=== PATIENT | female | born 1955 | race Caucasian/White ===

== ENCOUNTER 2017-12-22 09:11 | Emergency (ER) | payer OTHER ==
[~2017-12-22] VITALS: Ht 165.1 cm; Wt 111.1 kg
[~2017-12-22 09:11] MED LIST: BENAZEPRIL HCL20 MG PO; DYMISTA NASAL S23 GM; ELMIRON100 MG PO; FLUOXETINE HCL20 MG PO; RANITIDINE HCL300 M1 PO; SERTRALINE HCL100 MG PO; TRAZODONE HCL50 MG PO; VERAPAMIL ER240 M1 PO
--- OUTSIDE RECORDS SUMMARY | 2017-12-22 09:14 | XMS REPORT | Clinical Summary ---
Author Author GILDA [facility] Address Unknown Phone Unavailable Care Team Providers Care Liaison Officer Name Role Phone PCP Unavailable Allergies Active Allergy Reactions Severity Noted Date Comments Sulfa (Sulfonamide Hives, Itching Medium 10/28/2017 Antibiotics) Current Medications Prescription Sig. Disp. Refills Start End Date Status Date FLUoxetine (PROZAC) 40 MG Take 40 mg by mouth Active capsuleIndications: major daily. depressive disorder pentosan polysulfate Take 100 mg by mouth 2 Active (ELMIRON) 100 mg (two) times daily. capsuleIndications: Interstitial Cystitis traZODone (DESYREL) 50 MG Take 50 mg by mouth 3 Active tabletIndications: (three) times daily. sleeping disorder verapamil (CALAN-SR) 240 Take 240 mg by mouth Active MG CR tabletIndications: daily. hypertension warfarin (COUMADIN) 5 MG Take 1 tablet (5 mg 90 tablet 0 10/31/20 Active tablet total) by mouth every 17 18 evening for 90 days. enoxaparin (LOVENOX) 120 Inject 0.7 mLs (110 mg 7 mL 0 10/31/20 Discontin mg/0.8 mL Syrg total) subcutaneously 17 17 ued every 12 (twelve) hours for 5 days. gabapentin (NEURONTIN) Take 1 capsule (100 mg 90 capsule 0 10/31/20 10/31/20 Discontin 100 MG capsule total) by mouth 3 (three) 17 17 ued times daily for 30 days. levoFLOXacin (LEVAQUIN) Take 1 tablet (500 mg 3 tablet 0 10/31/20 Discontin 500 MG tablet total) by mouth daily for 17 17 ued 3 days. warfarin (COUMADIN) 5 MG Take 1 tablet (5 mg 90 tablet 0 12/25/20 12 /25/20 Discontin tablet total) by mouth every 17 17 ued evening for 90 days. enoxaparin (LOVENOX) 120 Inject 0.7 mLs (110 mg 7 mL 0 10/31/20 mg/0.8 mL Syrg total) subcutaneously 17 17 every 12 (twelve) hours for 5 days. gabapentin (NEURONTIN) Take 1 capsule (100 mg 90 capsule 0 10/31/20 11/30/19 100 MG capsule total) by mouth 3 (three) 17 18 times daily for 30 days. levoFLOXacin (LEVAQUIN) Take 1 tablet (500 mg 3 tablet 0 10/31/20 500 MG tablet total) by mouth daily for 17 17 3 days. Active Problems Problem Noted Date Acute pulmonary embolus (HCC) 10/30/2017 Pneumonia 10/28/2017 Encounters Date Type Specialty Care Team Description 10/28/2017 [facility] General Internal Medicine Essence Mustafa - Encounter MD Arlyn 10/31/2017 Mahamed Ko MD after 12/21/2016 Social History Tobacco Use Types Packs/Day Years Used Date Never Smoker Smokeless Tobacco: Never Used Alcohol Use Drinks/Week oz/Week Comments No Sex Assigned at Date Recorded Not on file Last Filed Vital Signs Vital Sign Reading Time Taken Blood Pressure 145/77 10/31/2017 8:00 AM STAFF INTERPRETER Pulse 88 10/31/2017 8:48 AM STAFF INTERPRETER Temperature 35.7 C (96.3 F) 10/31/2017 8:00 AM STAFF INTERPRETER Respiratory Rate 18 10/31/2017 8:48 AM STAFF INTERPRETER Oxygen Saturation 93% 10/31/2017 8:48 AM STAFF INTERPRETER Inhaled Oxygen - - Concentration Weight 112 kg (247 lb) 10/28/2017 8:30 PM STAFF INTERPRETER Height 165.1 cm (5' 5") 10/28/2017 8:30 PM STAFF INTERPRETER Body Mass Index 41.1 10/28/2017 8:30 PM STAFF INTERPRETER Plan of Treatment Not on file Results * CBC with platelet count + automated diff (10/31/2017 6:04 AM) Only the most recent of 4 results within the time period is included. Component Value Ref Range WBC 4.0 3.5 - 10.5 K/ L RBC 4.20 3.93 - 5.22 M/ L Hemoglobin 12.3 11.2 - 15.7 GM/DL Hematocrit 38.8 34.1 - 44.9 % MCV 92.4 79.4 - 94.8 fL MCH 29.3 25.6 - 32.2 pg MCHC 31.7 (L) 32.2 - 35.5 GM/DL RDW 12.7 11.7 - 14.4 % Platelets 304 150 - 450 K/CU MM MPV 9.7 9.4 - 12.3 fL nRBC 0 0 - 0 /100 WBC % Neutros 57 % % Lymphs 29 % % Monos 9 % % Eos 4 % % Baso 1 % # Neutros 2.25 1.56 - 6.13 K/ L # Lymphs 1.16 (L) 1.18 - 3.74 K/ L # Monos 0.37 (H) 0.24 - 0.36 K/ L # Eos 0.15 0.04 - 0.36 K/ L # Baso 0.03 0.01 - 0.08 K/ L Immature 0 0 - 1 % Granulocytes-Relative Specimen Performing Laboratory Blood - Arm, [address] [address] * Daily Prothrombin time/INR while on warfarin (10/31/2017 6:04 AM) Only the most recent of 2 results within the time period is included. Component Value Ref Range Protime 15.8 (H) 11.7 - 14.7 seconds INR 1.3 <=5.9 Specimen Performing Laboratory Blood - [place], [address] [address] Narrative RECOMMENDED COUMADIN/WARFARIN INR THERAPY RANGES STANDARD DOSE: 2.0 - 3.0 Includes: PROPHYLAXIS for venous thrombosis, systemic embolization; TREATMENT for venous thrombosis and/or pulmonary embolus. HIGH RISK: Target INR is 2.5-3.5 for patients with mechanical heart valves. While on warfarin. * CBC with platelet count + automated diff (10/31/2017 6:04 AM) Only the most recent of 4 results within the time period is included. Specimen Performing Laboratory Blood Narrative The following orders were created for panel order CBC with platelet count + automated diff. Procedure Abnormality Status --------- - ------ CBC with platelet count ...[[id number]]AbnormalFinal result Please view results for these tests on the individual orders. * Phosphorus (10/31/2017 6:04 AM) Only the most recent of 4 results within the time period is included. Component Value Ref Range Phosphorus 3.3 2.3 - 4.7 mg/dL Specimen Performing Laboratory Blood - [place], [address] [address] * Magnesium (10/31/2017 6:04 AM) Only the most recent of 4 results within the time period is included. Component Value Ref Range Magnesium 2.0 1.6 - 2.6 mg/dL Specimen Performing Laboratory Blood - [place], [address] [address] * Basic metabolic panel (10/31/2017 6:04 AM) Only the most recent of 4 results within the time period is included. Component Value Ref Range Sodium 144 136 - 145 meq/L Potassium 4.4 3.5 - 5.1 meq/L Chloride 110 (H) 98 - 107 meq/L CO2 23 22 - 29 meq/L BUN 12 7 - 21 mg/dL Creatinine 0.87 0.57 - 1.25 mg/dL Glucose 100 70 - 105 mg/dL Calcium 9.6 8.4 - 10.2 mg/dL EGFR 66Comment: ESTIMATED GFR IS NOT ACCURATE mL/min/1.73 sq m CREATININE CLEARANCE IN PREDICTING GLOMERULAR FILTRATION RATE. ESTIMATED GFR IS NOT APPLICABLE FOR DIALYSIS PATIENTS. Specimen Performing Laboratory Blood - [place], [address] [address] * Prothrombin Gene Mutation (10/30/2017 5:55 PM) Component Value Ref Range Prothrombin/Factor II Negative for the [id number] (Prothrombin/Factor II) mutation. Pathologist: Kallie Blanco MD (electronic signature) Specimen Performing Laboratory Blood [address] [address] Narrative This test is a genotyping assay which evaluates the DNA sequence at position [address] of the prothrombin (Factor II) gene. A region of the prothrombin (Factor II) gene is amplified by polymerase chain reaction followed by fluorescent monitoring of a specific pair of hybridized probes. Since genetic variation and other factors can affect the accuracy of direct mutation testing, these results should be interpreted in light of clinical and familial data. This test was developed and its performance characteristics determined by the [facility] Pathology Department, Section of Molecular Pathology. It has not been cleared or approved by the U.S. Food and Drug Administration ( FDA), since FDA approval is not required for clinical use of the test. Validation was done as required by the Clinical Laboratory Improvement Amendments of 1988. * Phosphatidylserine Abs (IgG, IgM) (10/30/2017 5:55 PM) Component Value Ref Range Phos.Serine Ab IgG <10 U/mL Comment: <10 Negative 10-20 Equivocal- Found in small percentage of the healthy population; may be reactive >20 Positive - Risk factor for thrombosis and loss PHOSPHATIDYLSERINE AB <25 U/mL (IGM) Comment: Clinical Significance: The Antiphospholipid Antibody Syndrome (APS) is a clinical pathologic correlation that includes a clinical event (e.g. thrombosis, loss, thrombocytopenia) and persistent positive Antiphospholipid Antibodies (IgM or IgG RACHEL >40 MPL/GPL, IgM or IgG anti-B2GP1 antibodies, or a Lupus Anticoagulant). The IgA isotype has been implicated in smaller studies, but have not yet been incorporated into the APS criteria. International consensus guidelines suggest waiting at least 12 weeks before retesting to confirm antibody persistence. Reference J Thromb Haemost 2006: 4; 295. <25 Negative 25-35 Equivocal- Found in small percentage of the healthy population; may be reactive >35 Positive - Risk factor for thrombosis and loss For more information on this test, go to: http://education.Jalbum/faq/NSX964 Specimen Performing Laboratory Blood [facility] [employer] [address] Narrative Performing Lab [facility] [address] [address] Larry Live MD * Protein S activity (10/30/2017 5:55 PM) Component Value Ref Range Protein S Functional 74 60 - 140 % normal Comment: Decreased levels of Protein S activity may be found in patients with hereditary deficiency, warfarin therapy, vitamin k deficiency, liver disease, DIC, or recent thrombosis as well as after surgery. In addition, it may be physiologic in . An elevated Protein S activity is not clinically significant. Only deficiencies are associated with an increased thrombotic risk. Specimen Performing Laboratory Blood [facility] [address] [address] [place] [address] Narrative Performing Lab [facility] [address] [place] [address] Larry Live MD * Protein C activity (10/30/2017 5:55 PM) Component Value Ref Range Protein C Activity 134.0 (H) 70.0 - 130.0 % Specimen [place] [address] * Factor 5 Leiden PCR (thrombotic risk) (10/30/2017 5:55 PM) Component Value Ref Range Factor V Leiden Negative for the R506Q (Factor V Leiden) mutation Pathologist: Kallie Blanco MD (electronic signature) Specimen [place] [address] Narrative This test is a genotyping assay which evaluates the DNA sequence corresponding to Codon 506 of the Factor V Gene. A region of the Factor V Gene is amplified by polymerase chain reaction followed by fluorescent monitoring of a specific pair of hybridized probes. Since genetic variation and other factors can affect the accuracy of direct mutation testing, these results should be interpreted in light of clinical and familial data. This test was developed and its performance characteristics determined by the [facility] Pathology Department, Section of Molecular Pathology. It has not been cleared or approved by the U.S. Food and Drug Administration (FDA), since FDA approval is not required for clinical use of the test. Validation was done as required by the Clinical Laboratory Improvement Amendments of 1988. * Antithrombin III (10/30/2017 5:55 PM) Component Value Ref Range Antithrombin III 92.0 80.0 - 120.0 % Specimen [place] [address] * PERIPHERAL VASCULAR REPORT - SCAN (10/30/2017 3:50 PM) * ECHOCARDIOGRAM REPORT - SCAN (10/30/2017 3:20 PM) * Venous doppler legs bilateral (10/30/2017 1:30 PM) Component Value Ref Range Ejection Fraction Specimen Performing Laboratory [facility] CPACS Impressions Right Impression 1. There is no deep venous obstruction in the common femoral, profunda femoral, femoral, popliteal, posterior tibial or peroneal veins. 2. There is no superficial venous obstruction in the great saphenous vein. Left Impression 1. There is no deep venous obstruction in the common femoral, profunda femoral, femoral, popliteal, posterior tibial or peroneal veins. 2. There is no superficial venous obstruction in the great saphenous vein. Conclusions Summary Venous duplex imaging and compression of the bilateral lower extremities were performed. The veins were adequately visualized. The bilateral venous systems were patent and compressible with no evidence of thrombus. The venous Doppler waveforms were phasic with respiration. Signature Velocities are measured in cm/s ; Diameters are measured in cm Narrative PV LAB - Lower Extremities DVT Study Demographics Patient NameSAINTAMANT,Date of Study 10/30/2017 GAURAV VALLECILLO Age 62 Visit [id number] Gender Female Date of 1954 Number [facility] Number [id number] Physician Datawarehouse Developer Anya Graham InterpretingPhysician JOHNNA Lopez, RPVI Procedure Type of Study: Veins: Lower Extremities DVT Study, VENOUS DOPPLER LEG, BILATERAL. Indications for Study:Pulmonary embolus and Rule out DVT. Patient Status:STAT. Study Location:Portable. Technical Quality:Adequate visualization. Risk Factors History of Disease + +----+ + !Diagnosis!Date!Comments ! + +----+ + !History/Risk Factors:!!HTN, VIRGIE, RBBB, MIGRAINE ! + +----+ + Procedure Note Interface, External Ris In - 10/30/2017 3:09 PM STAFF INTERPRETER PV LAB - Lower Extremities DVT Study Demographics Patient Name LOUIE, Date of Study 10/30/2017 GAURAV VALLECILLO Age 62 Visit Number [id number] Gender Female Date of 1955 Number Referring Mahamed Ko Room Number [id number] Physician Datawarehouse Developer Anya Graham Interpreting Maye Otto, Physician , RPVI Procedure Type of Study: Veins: Lower Extremities DVT Study, VENOUS DOPPLER LEG, BILATERAL. Indications for Study:Pulmonary embolus and Rule out DVT. Patient Status:STAT. Study Location:Portable. Technical Quality:Adequate visualization. Risk Factors History of Disease + +----+ + !Diagnosis !Date!Comments ! + +----+ + !History/Risk Factors: ! !HTN, VIRGIE, RBBB, MIGRAINE ! + +----+ + Impressions Right Impression 1. There is no deep venous obstruction in the common femoral, profunda femoral, femoral, popliteal, posterior tibial or peroneal veins. 2. There is no superficial venous obstruction in the great saphenous vein. Left Impression 1. There is no deep venous obstruction in the common femoral, profunda femoral, femoral, popliteal, posterior tibial or peroneal veins. 2. There is no superficial venous obstruction in the great saphenous vein. Conclusions Summary Venous duplex imaging and compression of the bilateral lower extremities were performed. The veins were adequately visualized. The bilateral venous systems were patent and compressible with no evidence of thrombus. The venous Doppler waveforms were phasic with respiration. Signature Velocities are measured in cm/s ; Diameters are measured in cm * 2D Echo W/O Doppler(No Doppler) (10/30/2017 11:39 AM) Component Value Ref Range Ejection Fraction Specimen Performing Laboratory [facility] [place] [facility] Narrative Transthoracic Echocardiography Report (TTE) Demographics Patient NameSMichael JIMENEZ of Study10/30/2017 RUTH ANN Gender Female Visit [id number] Race Unknown Number [id number] Number Date of 1955 Referring Rocael Segura Physician Age 62 year(s) Datawarehouse Developer Toro Van [facility] Hot Header Operator Pretty Chavez Interpreting Physician GeraldMD Procedure Type of Study TTE procedure:ECHO2D MODE W/O DOPPLER (Routine) Indications:Shortness of breath. Clinical History Hypertension RBBB VIRGIE HGB 11.9 HCT 37 % Height: 65 inches Weight: 112.04 kg (247 lbs) BSA: 2.16 m^2 BMI: 41.1 kg/m^2 HR: 78 bpm BP: 133/63 mmHg Summary No evidence of LV hypertrophy. Normal (cardiac index 2-3 L/min/m2) cardiac output state at rest is noted. Grade 1 diastolic dysfunction (impaired relaxation and low-normal LA pressure). All of the LV segments contract normally . Global LV systolic function normal . Estimated LVEF by qualitative assessment is normal (>60%) . The left ventricle is chamber size (by PSLAX dimension) is normal (male - LVIDd 4.2-5.8cm) . The right ventricular chamber size and systolic function are within normal limits. Unable to estimate peak systolic PA pressure; inadequate TR velocity signal. No pericardial effusion is visualized. Previous Study No prior studies available for comparison. Signature Findings Rhythm/BPRegular sinus rhythm during the exam. Left Ventricle No evidence of LV hypertrophy. Normal (cardiac index 2-3 L/min/m2) cardiac output state at rest is noted. Grade 1 diastolic dysfunction (impaired relaxation and low-normal LA pressure). All of the LV segments contract normally . Global LV systolic function normal . Estimated LVEF by qualitative assessment is normal (>60%) . The left ventricle is chamber size (by PSLAX dimension ) is normal (male - LVIDd 4.2-5.8cm) . Left AtriumLA size is normal (16-34 ml/m2) . Right VentricleThe right ventricular chamber size and systolic function are within normal limits. Right Atrium RA cavity size is normal . Aortic Valve Normal AoV structure. Mitral Valve Normal MV structure. Tricuspid ValveTV structure is normal. Unable to estimate peak systolic PA pressure; inadequate TR velocity signal. Pulmonic Valve Normal PV structure and function. AortaAortic root size (Sinus of Valsalva diameter) is mildly dilated. 3.6 cm Proximal ascending aorta size is normal . PericardiumNo pericardial effusion is visualized. IVC/SVC/PA/PV/PleuralThe right upper pulmonary vein (RUPV) is normal . The inferior vena cava is not well visualized. The estimated RA pressure by IVC dynamics indeterminate . Chambers/Structures Left Atrium LA Volume: 38.6 ml LA Vol. Index: 18 ml/m^2 Left Ventricle LV Septum Diastolic: 0.98 cm LV PW Diastolic: 0.97 cm LVOT Diameter: 2 cm Right Ventricle TAPSE: 1.7 cm Aorta Ao Root S of [place].: 3.62 cm Ascending Aorta: 3.2 cm Doppler/Quantitative Measurements Mitral Valve MV Peak E-Wave: 0.85 m/sMV Peak A-Wave: 1.26 m/s E/ A Ratio: 0.67 Peak Gradient: 2.87 mmHg Deceleration Time: 306.4 msec MV Terry. Peak: Tissue Doppler E' Lateral Velocity: 0.1 m/sE/E': 8.51 LVOT Peak Velocity: 1.21 m/s Peak Gradient: 5.84 mmHg Mean Velocity: 0.81 m/s Mean Gradient: 3.04 mmHg LVOT Diameter: 2 cm LVOT VTI: 26.04 cm LVOT Area: 3.14 cm^2LVOT SV:81.77 ml LVOT CO: 6.38 l/min LVOT CI: 2.95 l/min/m^2 Procedure Note Interface, External Ris In - 10/30/2017 2:38 PM STAFF INTERPRETER Transthoracic Echocardiography Report (TTE) Demographics Patient Name GAURAV PALMA Date of Study 10/30/2017 RUTH ANN Gender Female Visit Number [id number] Race Unknown Room Number [id number] Number Date of 1955 Referring Rocael Segura Physician Age 62 year(s) Datawarehouse Developer Toro Araujo [facility] Hot Header Operator Pretty Chavez Interpreting Physician JOHNNA Duarte Procedure Type of Study TTE procedure:ECHO2D MODE W/O DOPPLER (Routine) Indications:Shortness of breath. Clinical History Hypertension RBBB VIRGIE HGB 11.9 HCT 37 % Height: 65 inches Weight: 112.04 kg (247 lbs) BSA: 2.16 m^2 BMI: 41.1 kg/m^2 HR: 78 bpm BP: 133/63 mmHg Summary No evidence of LV hypertrophy. Normal (cardiac index 2-3 L/min/m2) cardiac output state at rest is noted. Grade 1 diastolic dysfunction (impaired relaxation and low-normal LA pressure). All of the LV segments contract normally . Global LV systolic function normal . Estimated LVEF by qualitative assessment is normal (>60%) . The left ventricle is chamber size (by PSLAX dimension) is normal (male - LVIDd 4.2-5.8cm) . The right ventricular chamber size and systolic function are within normal limits. Unable to estimate peak systolic PA pressure; inadequate TR velocity signal. No pericardial effusion is visualized. Previous Study No prior studies available for comparison. Signature Findings Rhythm/BP Regular sinus rhythm during the exam. Left Ventricle No evidence of LV hypertrophy. Normal (cardiac index 2-3 L/min/m2) cardiac output state at rest is noted. Grade 1 diastolic dysfunction (impaired relaxation and low-normal LA pressure). All of the LV segments contract normally . Global LV systolic function normal . Estimated LVEF by qualitative assessment is normal (>60%) . The left ventricle is chamber size (by PSLAX dimension) is normal (male - LVIDd 4.2-5.8cm) . Left Atrium LA size is normal (16-34 ml/m2) . Right Ventricle The right ventricular chamber size and systolic function are within normal limits. Right Atrium RA cavity size is normal . Aortic Valve Normal AoV structure. Mitral Valve Normal MV structure. Tricuspid Valve TV structure is normal. Unable to estimate peak systolic PA pressure; inadequate TR velocity signal. Pulmonic Valve Normal PV structure and function. Aorta Aortic root size (Sinus of Valsalva diameter) is mildly dilated. 3.6 cm Proximal ascending aorta size is normal . Pericardium No pericardial effusion is visualized. IVC/SVC/PA/PV/Pleural The right upper pulmonary vein (RUPV) is normal . The inferior vena cava is not well visualized. The estimated RA pressure by IVC dynamics indeterminate . Chambers/Structures Left Atrium LA Volume: 38.6 ml LA Vol. Index: 18 ml/m^2 Left Ventricle LV Septum Diastolic: 0.98 cm LV PW Diastolic: 0.97 cm LVOT Diameter: 2 cm Right Ventricle TAPSE: 1.7 cm Aorta Ao Root S of [place].: 3.62 cm Ascending Aorta: 3.2 cm Doppler/Quantitative Measurements Mitral Valve MV Peak E-Wave: 0.85 m/s MV Peak A-Wave: 1.26 m/s E/A Ratio: 0.67 Peak Gradient: 2.87 mmHg Deceleration Time: 306.4 msec MV Terry. Peak: Tissue Doppler E' Lateral Velocity: 0.1 m/s E/E': 8.51 LVOT Peak Velocity: 1.21 m/s Peak Gradient: 5.84 mmHg Mean Velocity: 0.81 m/s Mean Gradient: 3.04 mmHg LVOT Diameter: 2 cm LVOT VTI: 26.04 cm LVOT Area: 3.14 cm^2 LVOT SV:81.77 ml LVOT CO: 6.38 l/min LVOT CI: 2.95 l/min/m^2 * CT chest for pulmonary embolus (10/29/2017 10:49 AM) Specimen Performing Laboratory [employer] Narrative FINAL REPORT HISTORY: Chest pain, acute, PE suspected, high pretest prob COMPARISON : None Technique : Multiple axial images of the chest were performed from the lung apices to the lung bases with 5 mm slice thickness with the administration of IV contrast. Images were further reconstructed with 2 mm slice thickness through the pulmonary arteries. This exam was performed according to our departmental dose optimization program which includes automated exposure control, adjustment of the mA and/or kV according to patient size and/or use of iterative reconstructive technique. Comment: Arising from the left thyroid gland, there is a nodule measuring 2.4 cm associated with some calcifications. Correlation with a thyroid ultrasound with possible biopsy is advised. There is atherosclerotic vascular disease. There is no hilar, mediastinal or axillary lymphadenopathy. The visualized portions of the spleen, adrenal glands, pancreas, and kidneys are within normal limits. There is hepatic steatosis. The osseous structures as well as the subcutaneous soft tissues are without any abnormalities. There are very small bilateral pleural effusions. Adjacent airspace disease more likely represents atelectasis. However, given the presence of pulmonary emboli, areas of infarct cannot be excluded. Pneumonitis or aspiration cannot be excluded. In the left upper lobe, there is an approximately 0.5 cm lung nodule. Additional patchy areas of airspace disease are also seen in the right middle lobe towards the periphery. The patient does have extensive bilateral pulmonary embolus. The findings were discussed with Dr. Ko. Impression: 1. Bilateral pulmonary embolus. 2. Trace bilateral pleural effusions. 3. Bibasilar and right middle lobe airspace disease. Given the presence of embolus, these could represent infarcts. Atelectasis, pneumonitis or aspiration are other considerations. 4. Emphysema/COPD. 5. Subcentimeter left upper lobe pulmonary nodule. Follow-up CT in 6 months is advised. 6. Left thyroid nodule. Please see above. Signed: Timbo Michaels MD Report Verified Date/Time:10/29/2017 11:04:32 Reading Location: [address] Reading Room Procedure Note Interface, External Ris In - 10/29/2017 11:06 AM STAFF INTERPRETER FINAL REPORT HISTORY: Chest pain, acute, PE suspected, high pretest prob COMPARISON : None Technique : Multiple axial images of the chest were performed from the lung apices to the lung bases with 5 mm slice thickness with the administration of IV contrast. Images were further reconstructed with 2 mm slice thickness through the pulmonary arteries. This exam was performed according to our departmental dose optimization program which includes automated exposure control, adjustment of the mA and/or kV according to patient size and/or use of iterative reconstructive technique. Comment: Arising from the left thyroid gland, there is a nodule measuring 2.4 cm associated with some calcifications. Correlation with a thyroid ultrasound with possible biopsy is advised. There is atherosclerotic vascular disease. There is no hilar, mediastinal or axillary lymphadenopathy. The visualized portions of the spleen, adrenal glands, pancreas, and kidneys are within normal limits. There is hepatic steatosis. The osseous structures as well as the subcutaneous soft tissues are without any abnormalities. There are very small bilateral pleural effusions. Adjacent airspace disease more likely represents atelectasis. However, given the presence of pulmonary emboli, areas of infarct cannot be excluded. Pneumonitis or aspiration cannot be excluded. In the left upper lobe, there is an approximately 0.5 cm lung nodule. Additional patchy areas of airspace disease are also seen in the right middle lobe towards the periphery. The patient does have extensive bilateral pulmonary embolus. The findings were discussed with Dr. Ko. Impression: 1. Bilateral pulmonary embolus. 2. Trace bilateral pleural effusions. 3. Bibasilar and right middle lobe airspace disease. Given the presence of embolus, these could represent infarcts. Atelectasis, pneumonitis or aspiration are other considerations. 4. Emphysema/COPD. 5. Subcentimeter left upper lobe pulmonary nodule. Follow-up CT in 6 months is advised. 6. Left thyroid nodule. Please see above. Signed: Timbo Michaels MD Report Verified Date/Time: 10/29/2017 11:04:32 Reading Location: [address] Transitional Reading Room * XR chest 1 view portable / bedside (10/29/2017 7:42 AM) Specimen Performing Laboratory [employer] Narrative FINAL REPORT Chest one view INDICATION: Shortness of breath COMPARISON: None available IMPRESSION: There are increased initial markings with airspace opacity in the left lung base. While edema and atelectasis are possible, pneumonitis cannot be excluded particularly in the left base. Short term radiographic follow up or CT can be obtained for re-evaluation. No pneumothorax or significant pleural effusion is evident. The cardiac silhouette is prominent. Mediastinal widening may be due to lipomatosis given body habitus. The bones appear intact. Signed: Ciltali Mitchell MD Report Verified Date/Time:10/29/2017 09:04:04 Reading Location: [address] Neuro Reading Room Procedure Note Interface, External Ris In - 10/29/2017 9:17 AM STAFF INTERPRETER FINAL REPORT Chest one view INDICATION: Shortness of breath COMPARISON: None available IMPRESSION: There are increased initial markings with airspace opacity in the left lung base. While edema and atelectasis are possible, pneumonitis cannot be excluded particularly in the left base. Short term radiographic follow up or CT can be obtained for re-evaluation. No pneumothorax or significant pleural effusion is evident. The cardiac silhouette is prominent. Mediastinal widening may be due to lipomatosis given body habitus. The bones appear intact. Signed: Citlali Mitchell MD Report Verified Date/Time: 10/29/2017 09:04:04 Reading Location: [address] Neuro Reading Room * Blood culture #2 (10/29/2017 6:22 AM) Only the most recent of 2 results within the time period is included. Component Value Ref Range Result No growth in 5 days Specimen Performing Laboratory Blood - Line, Venous [address] [address] * Manual Differential (10/29/2017 6:21 AM) Component Value Ref Range Total Counted Specimen Performing Laboratory Blood [address] [address] * Influenza A H1N1 PCR (10/29/2017 12:03 AM) Component Value Ref Range Influenza A RNA Not Detected Not Detected, Inconclusive Novel H1N1 RNA Not Detected Not Detected, Inconclusive Specimen Performing Laboratory Nasal - Nasal Mucosa [address] [address] Narrative These assays were performed by real-time RT-PCR (pollution control technician-PCR) utilizing fluorogenic hydrolysis probe technology for the detection of human Influenza A viruses and the differential detection of novel H1N1 Influenza virus in respiratory specimens. The test is composed of (1) an RNA extraction from patient specimen, and (2) pollution control technician-PCR amplification and detection with human Influenza A and novel [id number] primers and probes. A well-conserved region of the Influenza A matrix gene is targeted in one set of reactions to identify both seasonal Influenza A and novel H1N1 Influenza virus in the specimen.In addition, a specific region of the hemagglutinin gene is targeted to differentiate the novel H1N1 virus from the seasonal human influenza. An internal control is used to confirm PCR amplification.Genetic variation and other factors can affect the accuracy of nucleic acid testing; therefore, the results should be interpreted in light of clinical data. This test was developed and its performance characteristics determined by the [facility] Pathology Department, Section of Molecular Pathology.It has not been cleared or approved by the U.S. Food and Drug Administration (FDA).Since FDA approval is not required for clinical use of the test, validation was done as required by The Clinical Laboratory Amendments of 1988. These assays were performed by real-time RT-PCR (pollution control technician-PCR) utilizing fluorogenic hydrolysis probe technology for the detection of human Influenza A viruses and the differential detection of novel H1N1 Influenza virus in respiratory specimens. The test is composed of (1) an RNA extraction from patient specimen, and (2) pollution control technician-PCR amplification and detection with human Influenza A and novel [id number] primers and probes. A well-conserved region of the Influenza A matrix gene is targeted in one set of reactions to identify both seasonal Influenza A and novel H1N1 Influenza virus in the specimen.In addition, a specific region of the hemagglutinin gene is targeted to differentiate the novel H1N1 virus from the seasonal human influenza. An internal control is used to confirm PCR amplification.Genetic variation and other factors can affect the accuracy of nucleic acid testing; therefore, the results should be interpreted in light of clinical data. This test was developed and its performance characteristics determined by the [facility] Pathology Department, Section of Molecular Pathology.It has not been cleared or approved by the U.S. Food and Drug Administration (FDA).Since FDA approval is not required for clinical use of the test, validation was done as required by The Clinical Laboratory Amendments of 1988. * TSH/Free T4 If Indicated (10/28/2017 11:41 PM) Component Value Ref Range TSH 2.35 0.35 - 4.94 uIU/mL Specimen [place] [address] * Troponin I (10/28/2017 11:41 PM) Component Value Ref Range Troponin I <0.01 0.00 - 0.03 ng/mL Specimen [place] [address] Narrative Troponin I (TnI) levels must be interpreted in the context of the presenting symptoms and the clinical findings. Elevated TnI levels indicate myocardial damage, but are not specific for ischemic heart disease. Elevated TnI levels are seen in patients with other cardiac conditions (including myocarditis and congestive heart failure), and slight TnI elevations occur in patients with other conditions, including sepsis, renal failure, acidosis, acute neurological disease, and persistent tachyarrhythmia. * Lactic acid, venous, whole blood (10/28/2017 11:41 PM) Component Value Ref Range Lactate, Venous 1.9 0.5 - 2.2 mmol/L Specimen [place] [address] Narrative Effective 03/10/2016: Units/Reference Range Change New: 0.5-2.2 mmol/LPrevious: 5-20 mg/dL * D-dimer (10/28/2017 11:41 PM) Component Value Ref Range D-Dimer, Quant 2.59 (H) <0.50 MG/L FEU [place] [address] Narrative Intended Use: The D-Dimer Assay can be used to aid in the diagnosis of Deep Vein Thrombosis (DVT) and Pulmonary Embolism Disease (PED). In patients with low pre-test probability, various studies concerning STA Liatest D-dimer test have reported that with a cutoff value of 0.50 MG/L FEU, the Negative Predictive Value (NPV) regarding the exclusion of thrombosis is within 95-100% range. * T3 (10/28/2017 11:41 PM) Component Value Ref Range T3, Total 105 48 - 159 ng/dL Specimen Performing Laboratory Blood [place] [id number] * T4, free (10/28/2017 11:41 PM) Component Value Ref Range Free T4 1.06 0.70 - 1.48 ng/dL Specimen Performing Laboratory Blood [address] [address] * B-type Natriuretic Factor (BNP) (10/28/2017 11:41 PM) Component Value Ref Range BNP 26 0 - 100 pg/mL Specimen Performing Laboratory Blood [address] [address] * Creatine Kinase (CK), Total and MB (10/28/2017 11:41 PM) Component Value Ref Range Total CK 59 29 - 200 U/L CK-MB 0.9 0.0 - 6.6 ng/mL MB Relative Index 1.5 % Specimen Performing Laboratory Blood [address] [address] Narrative CK-MB Reference Range: <6.7Normal 6.7-10.0Borderline >10.0 Abnormal * Hepatic function panel (10/28/2017 11:41 PM) Component Value Ref Range Protein, Total 7.2 6.0 - 8.3 gm/dL Albumin 3.9 3.5 - 5.0 g/dL Total Bilirubin 0.4 0.2 - 1.2 mg/dL Bilirubin, Direct 0.2 0.1 - 0.5 mg/dL Alkaline Phosphatase 100 40 - 150 U/L AST 27 5 - 34 U/L ALT 43 6 - 55 U/L Specimen Performing Laboratory Blood [address] [address] after 12/21/2016
--- OUTSIDE RECORDS SUMMARY | 2017-12-22 09:15 | XMS REPORT ---
Author Author [facility] Address Unknown Phone Unavailable Care Team Providers Care Rn Cvor Name Role Phone CARLOS THOMPSON Unavailable Unavailable Problems This patient has no known problems. Allergies, Adverse Reactions, Alerts This patient has no known allergies or adverse reactions. Medications This patient has no known medications. Results Test Description Test Time Test Comments Text Results Atomic Results Result Comments BLOOD CULTURE 2017-11-03 10:00:00 CULTURE (BEAKER) (test adzm=4476) No growth in 5 days BLOOD [id number] 05:00:00* Test Item Value Reference Range Comments CULTURE (BEAKER) (test socp=3966) No growth in 5 days PROTHROMBIN GENE [id number] 09:01:00* Test Item Value Reference Range Comments PROTHROMBIN/FACTOR II (BEAKER) (test fyhy=7059) Negative for the [id number] ( Prothrombin/Factor II) mutation. [id number]-0149(BEAKER) (test gprx=9942) Kallie Blanco MD ( electronic signature) This test is a genotyping assay which evaluates the DNA sequence at position 44513 of the prothrombin (Factor II) gene. A region of the prothrombin (Factor II) gene is amplified by polymerase chain reaction followed by fluorescent monitoring of a specific pair of hybridized probes. Since genetic variation and other factors can affect the accuracy of direct mutation testing, these results should be interpreted in light of clinical and familial data.This test was developed and its performance characteristics determined by the [facility] Pathology Department, Section of Molecular Pathology. It has not been cleared or approved by the U.S. Food and Drug Administration (FDA), since FDA approval is not required for clinical use of the test. Validation was done as required by the Clinical Laboratory Improvement Amendments of 1988.FACTOR 5 LEIDEN PCR (THROMBOTIC RISK)2017-11-02 08:59:00* Test Item Value Reference Range Comments FACTOR V LEIDEN (BEAKER) (test dsaw=778) Negative for the R506Q (Factor V Leiden) mutation [id number] (BEAKER) (test ejql=1485) Kallie Blanco MD ( electronic signature) This test is a genotyping assay which [...] interpreted in light of clinical and familial data.This test was developed and its performance characteristics determined by the [facility] Pathology Department, Section of Molecular Pathology. It has not been cleared or approved by the U.S. Food and Drug Administration (FDA), since FDA approval is not required for clinical use of the test. Validation was done as required by the Clinical Laboratory Improvement Amendments of 1988.ANTITHROMBIN [id number] 09 :50:00* Test Item Value Reference Range Comments ANTITHROMBIN III ACTIVITY (BEAKER) (test cvmt=199) 92.0 % 80.0-120.0 PROTEIN C [id number] 09:41:00* Test Item Value Reference Range Comments PROTEIN C ACTIVITY (BEAKER) (test bqop=335) 134.0 % 70.0-130.0 [id number] 07:15:00* Test Item Value Reference Range Comments PHOSPHORUS (BEAKER) (test esuz=874) 3.3 mg/dL 2.3-4.7 [id number] 07:15:00* Test Item Value Reference Range Comments MAGNESIUM (BEAKER) (test wuen=609) 2.0 mg/dL 1.6-2.6 BASIC METABOLIC [id number] 07:15:00* Test Item Value Reference Range Comments SODIUM (BEAKER) (test txfj=352) 144 meq/L 136-145 POTASSIUM (BEAKER) (test jyul=455) 4.4 meq/L 3.5-5.1 CHLORIDE (BEAKER) (test yqtb=647) 110 meq/L 98-107 CO2 (BEAKER) (test pwgb=441) 23 meq/L 22-29 BLOOD UREA NITROGEN (BEAKER) (test nksx=222) 12 mg/dL 7-21 CREATININE (BEAKER) (test ewxp=219) 0.87 mg/dL 0.57-1.25 GLUCOSE RANDOM (BEAKER) (test itqo=421) 100 mg/dL 70-105 CALCIUM (BEAKER) (test zmxd=487) 9.6 mg/dL 8.4-10.2 EGFR (BEAKER) (test ewzp=3633) 66 mL/min/1.73 sq m ESTIMATED GFR IS NOT ACCURATE CREATININE CLEARANCE IN PREDICTING GLOMERULAR FILTRATION RATE. ESTIMATED GFR IS NOT APPLICABLE FOR DIALYSIS PATIENTS. PROTHROMBIN TIME/[id number] 06:48:00* Test Item Value Reference Range Comments PROTIME (BEAKER) (test uhyl=353) 15.8 seconds 11.7-14.7 INR (BEAKER) (test ahxu=285) 1.3 <=5.9 RECOMMENDED COUMADIN/WARFARIN INR THERAPY RANGESSTANDARD DOSE: 2.0 - 3.0 Includes: PROPHYLAXIS for venous thrombosis, systemic embolization; TREATMENT for venous thrombosis and/or pulmonary embolus.HIGH RISK: Target INR is 2.5-3.5 for patients with mechanical heart valves.While on warfarin.CBC W/PLT COUNT & AUTO [id number] 06:43:00* Test Item Value Reference Range Comments WHITE BLOOD CELL COUNT (BEAKER) (test nsfu=822) 4.0 K/ L 3.5-10.5 RED BLOOD CELL COUNT (BEAKER) (test ppdj=989) 4.20 M/ L 3.93-5.22 HEMOGLOBIN (BEAKER) (test kcln=773) 12.3 GM/DL 11.2-15.7 HEMATOCRIT (BEAKER) (test yhtb=736) 38.8 % 34.1-44.9 MEAN CORPUSCULAR VOLUME (BEAKER) (test srzo=779) 92.4 fL 79.4-94.8 MEAN CORPUSCULAR HEMOGLOBIN (BEAKER) (test hlkm=333) 29.3 pg 25.6-32.2 MEAN CORPUSCULAR HEMOGLOBIN CONC (BEAKER) (test unad=738) 31.7 GM/DL 32.2- 35.5 RED CELL DISTRIBUTION WIDTH (BEAKER) (test rzod=942) 12.7 % 11.7-14.4 PLATELET COUNT (BEAKER) (test tbxn=068) 304 K/CU MM 150-450 MEAN PLATELET VOLUME (BEAKER) (test mzkm=875) 9.7 fL 9.4-12.3 NUCLEATED RED BLOOD CELLS (BEAKER) (test zsqp=407) 0 /100 WBC 0-0 NEUTROPHILS RELATIVE PERCENT (BEAKER) (test bira=574) 57 % LYMPHOCYTES RELATIVE PERCENT (BEAKER) (test nzoc=415) 29 % MONOCYTES RELATIVE PERCENT (BEAKER) (test eybx=776) 9 % EOSINOPHILS RELATIVE PERCENT (BEAKER) (test qqgh=295) 4 % BASOPHILS RELATIVE PERCENT (BEAKER) (test kkfe=340) 1 % NEUTROPHILS ABSOLUTE COUNT (BEAKER) (test edle=166) 2.25 K/ L 1.56-6.13 LYMPHOCYTES ABSOLUTE COUNT (BEAKER) (test osiz=853) 1.16 K/ L 1.18-3.74 MONOCYTES ABSOLUTE COUNT (BEAKER) (test ltqa=300) 0.37 K/ L 0.24-0.36 EOSINOPHILS ABSOLUTE COUNT (BEAKER) (test aupu=193) 0.15 K/ L 0.04-0.36 BASOPHILS ABSOLUTE COUNT (BEAKER) (test svzk=129) 0.03 K/ L 0.01-0.08 IMMATURE GRANULOCYTES-RELATIVE PERCENT (BEAKER) (test qelt=0063) 0 % 0-1 CBC W/PLT COUNT & AUTO [id number] 07:50:00* Test Item Value Reference Range Comments WHITE BLOOD CELL COUNT (BEAKER) (test accf=055) 3.8 K/ L 3.5-10.5 RED BLOOD CELL COUNT (BEAKER) (test toby=448) 4.05 M/ L 3.93-5.22 HEMOGLOBIN (BEAKER) (test kqke=490) 11.9 GM/DL 11.2-15.7 HEMATOCRIT (BEAKER) (test emyo=203) 37.0 % 34.1-44.9 MEAN CORPUSCULAR VOLUME (BEAKER) (test dvhj=909) 91.4 fL 79.4-94.8 MEAN CORPUSCULAR HEMOGLOBIN (BEAKER) (test lnlh=098) 29.4 pg 25.6-32.2 MEAN CORPUSCULAR HEMOGLOBIN CONC (BEAKER) (test mrhh=710) 32.2 GM/DL 32.2- 35.5 RED CELL DISTRIBUTION WIDTH (BEAKER) (test fwvg=986) 12.5 % 11.7-14.4 PLATELET COUNT (BEAKER) (test urnr=005) 286 K/CU MM 150-450 MEAN PLATELET VOLUME (BEAKER) (test kvtd=702) 9.8 fL 9.4-12.3 NUCLEATED RED BLOOD CELLS (BEAKER) (test zaml=932) 0 /100 WBC 0-0 NEUTROPHILS RELATIVE PERCENT (BEAKER) (test tvej=270) 53 % LYMPHOCYTES RELATIVE PERCENT (BEAKER) (test unnf=315) 33 % MONOCYTES RELATIVE PERCENT (BEAKER) (test tfht=082) 10 % EOSINOPHILS RELATIVE PERCENT (BEAKER) (test hyfk=849) 3 % BASOPHILS RELATIVE PERCENT (BEAKER) (test uizt=433) 1 % NEUTROPHILS ABSOLUTE COUNT (BEAKER) (test ksud=146) 2.02 K/ L 1.56-6.13 LYMPHOCYTES ABSOLUTE COUNT (BEAKER) (test wimv=475) 1.26 K/ L 1.18-3.74 MONOCYTES ABSOLUTE COUNT (BEAKER) (test bxce=833) 0.39 K/ L 0.24-0.36 EOSINOPHILS ABSOLUTE COUNT (BEAKER) (test qcwp=456) 0.13 K/ L 0.04-0.36 BASOPHILS ABSOLUTE COUNT (BEAKER) (test ajdm=315) 0.02 K/ L 0.01-0.08 IMMATURE GRANULOCYTES-RELATIVE PERCENT (BEAKER) (test uouy=6204) 0 % 0-1 [id number] 07:40:00* Test Item Value Reference Range Comments MAGNESIUM (BEAKER) (test gksi=181) 2.0 mg/dL 1.6-2.6 [id number] 07:40:00* Test Item Value Reference Range Comments PHOSPHORUS (BEAKER) (test uvvl=372) 3.4 mg/dL 2.3-4.7 BASIC METABOLIC [id number] 07:40:00* Test Item Value Reference Range Comments SODIUM (BEAKER) (test pwwv=263) 143 meq/L 136-145 POTASSIUM (BEAKER) (test qyxe=340) 4.2 meq/L 3.5-5.1 CHLORIDE (BEAKER) (test mkhe=137) 111 meq/L 98-107 CO2 (BEAKER) (test vbtu=284) 24 meq/L 22-29 BLOOD UREA NITROGEN (BEAKER) (test eyvb=823) 16 mg/dL 7-21 CREATININE (BEAKER) (test rxss=937) 0.88 mg/dL 0.57-1.25 GLUCOSE RANDOM (BEAKER) (test qlhq=095) 102 mg/dL 70-105 CALCIUM (BEAKER) (test rrft=709) 9.3 mg/dL 8.4-10.2 EGFR (BEAKER) (test cwqf=7080) 65 mL/min/1.73 sq m ESTIMATED GFR IS NOT ACCURATE CREATININE CLEARANCE IN PREDICTING GLOMERULAR FILTRATION RATE. ESTIMATED GFR IS NOT APPLICABLE FOR DIALYSIS PATIENTS. INFLUENZA A H1N1 [id number] 23:10:00* Test Item Value Reference Range Comments INFLUENZA A RNA (BEAKER) (test gyis=7612) Not Detected Not Detected, Inconclusive NOVEL H1N1 RNA (BEAKER) (test fqsg=5444) Not Detected Not Detected, Inconclusive These assays were performed by real-time RT-PCR (cattle feeder-PCR) utilizing fluorogenic hydrolysis probe technology for the detection of human Influenza A viruses and the differential detection of novel H1N1 Influenza virus in respiratory specimens. The test is composed of (1) an RNA extraction from patient specimen, and (2) cattle feeder-PCR amplification and detection with human Influenza A and novel C8O4-khiktuje primers and probes. A well-conserved region of the Influenza A matrix gene is targeted in one set of reactions to identify both seasonal Influenza A and novel H1N1 Influenza virus in the specimen. In addition, a specific region of the hemagglutinin gene is targeted to differentiate the novel H1N1 virus from the seasonal human influenza. An internal control is used to confirm PCR amplification. Genetic variation and other factors can affect the accuracy of nucleic acid testing; therefore, the results should be interpreted in light of clinical data. This test was developed and its performance characteristics determined by the [facility] Pathology Department, Section of Molecular Pathology. It has not been cleared or approved by the U.S. Food and Drug Administration (FDA). Since FDA approval is not required for clinical use of the test, validation was done as required by The Clinical Laboratory Amendments of 1988.These assays were performed by real-time RT-PCR (cattle feeder-PCR) utilizing fluorogenic hydrolysis probe technology for the detection of human Influenza A viruses and the differential detection of novel H1N1 Influenza virus in respiratory specimens. The test is composed of (1) an RNA extraction from patient specimen, and (2) cattle feeder-PCR amplification and detection with human Influenza A and novel M8Q4-snnkzohs primers and probes. A well-conserved region of the Influenza A matrix gene is targeted in one set of reactions to identify both seasonal Influenza A and novel H1N1 Influenza virus in the specimen. In addition, a specific region of the hemagglutinin gene is targeted to differentiate the novel H1N1 virus from the seasonal human influenza. An internal control is used to confirm PCR amplification. Genetic variation and other factors can affect the accuracy of nucleic acid testing; therefore, the results should be interpreted in light of clinical data. This test was developed and its performance characteristics determined by the [facility] Pathology Department, Section of Molecular Pathology. It has not been cleared or approved by the U.S. Food and Drug Administration ( FDA). Since FDA approval is not required for clinical use of the test, validation was done as required by The Clinical Laboratory Amendments of 1988.CT , CHEST WITH IV CONTRAST- PE TEST [id number] 11:04:00FINAL REPORT HISTORY: Chest pain, acute, PE suspected, [...] Adjacent airspace disease more likely represents atelectasis. However , given the presence of pulmonary emboli, areas [...] pneumonitis or aspiration are other considerations. 4. Emphysema/ COPD. 5. Subcentimeter left upper lobe pulmonary nodule. Follow-up CT in 6 months is advised. 6. Left thyroid nodule. Please see above. Signed: Timbo Michaels MDReport Verified Date/Time: 10/29/2017 11:04:32 Reading Location: [address] Transitional Reading Room W/PLT COUNT & AUTO [id number] 09:53: 00* Test Item Value Reference Range Comments WHITE BLOOD CELL COUNT (BEAKER) (test cqlp=465) 4.2 K/ L 3.5-10.5 RED BLOOD CELL COUNT (BEAKER) (test yern=439) 3.87 M/ L 3.93-5.22 HEMOGLOBIN (BEAKER) (test fadr=392) 11.6 GM/DL 11.2-15.7 HEMATOCRIT (BEAKER) (test kcfx=430) 36.2 % 34.1-44.9 MEAN CORPUSCULAR VOLUME (BEAKER) (test ldrf=041) 93.5 fL 79.4-94.8 MEAN CORPUSCULAR HEMOGLOBIN (BEAKER) (test dspj=540) 30.0 pg 25.6-32.2 MEAN CORPUSCULAR HEMOGLOBIN CONC (BEAKER) (test qepr=249) 32.0 GM/DL 32.2- 35.5 RED CELL DISTRIBUTION WIDTH (BEAKER) (test flgw=050) 12.5 % 11.7-14.4 PLATELET COUNT (BEAKER) (test dgmt=844) 280 K/CU MM 150-450 MEAN PLATELET VOLUME (BEAKER) (test imqt=859) 9.9 fL 9.4-12.3 NUCLEATED RED BLOOD CELLS (BEAKER) (test kmab=885) 0 /100 WBC 0-0 NEUTROPHILS RELATIVE PERCENT (BEAKER) (test bpvq=560) 43 % LYMPHOCYTES RELATIVE PERCENT (BEAKER) (test mvrq=236) 44 % MONOCYTES RELATIVE PERCENT (BEAKER) (test xhvc=320) 10 % EOSINOPHILS RELATIVE PERCENT (BEAKER) (test fiya=700) 3 % BASOPHILS RELATIVE PERCENT (BEAKER) (test favo=522) 1 % NEUTROPHILS ABSOLUTE COUNT (BEAKER) (test iiwt=055) 1.79 K/ L 1.56-6.13 LYMPHOCYTES ABSOLUTE COUNT (BEAKER) (test oyhl=844) 1.82 K/ L 1.18-3.74 MONOCYTES ABSOLUTE COUNT (BEAKER) (test ckqc=387) 0.41 K/ L 0.24-0.36 EOSINOPHILS ABSOLUTE COUNT (BEAKER) (test jzxj=478) 0.13 K/ L 0.04-0.36 BASOPHILS ABSOLUTE COUNT (BEAKER) (test sfjq=497) 0.02 K/ L 0.01-0.08 IMMATURE GRANULOCYTES-RELATIVE PERCENT (BEAKER) (test khcy=1404) 0 % 0-1 (MANUAL DIFFERENTIAL)2017-10-29 09:53:00* Test Item Value Reference Range Comments TOTAL COUNTED (BEAKER) (test wzwh=3869) RAD, CHEST, 1 VIEW, NON [id number] 09:04:00Reason for exam:->shortness of breathShould this be performed at the bedside?->YesFINAL REPORT Chest one view INDICATION: Shortness of [...] The bones appear intact. Signed: Citlali Mitchell Verified Date/ Time: 10/29/2017 09:04:04 Reading Location: [facility] C013V Neuro Reading Room [id number] 08:16:00* Test Item Value Reference Range Comments PHOSPHORUS (BEAKER) (test cuer=856) 3.8 mg/dL 2.3-4.7 [id number] 08:16:00* Test Item Value Reference Range Comments MAGNESIUM (BEAKER) (test meqd=834) 1.9 mg/dL 1.6-2.6 BASIC METABOLIC [id number] 08:16:00* Test Item Value Reference Range Comments SODIUM (BEAKER) (test fcuw=076) 143 meq/L 136-145 POTASSIUM (BEAKER) (test ahnx=729) 3.8 meq/L 3.5-5.1 CHLORIDE (BEAKER) (test syem=518) 111 meq/L 98-107 CO2 (BEAKER) (test qvyv=502) 22 meq/L 22-29 BLOOD UREA NITROGEN (BEAKER) (test zaom=996) 13 mg/dL 7-21 CREATININE (BEAKER) (test zvnr=111) 0.81 mg/dL 0.57-1.25 GLUCOSE RANDOM (BEAKER) (test hpdu=289) 90 mg/dL 70-105 CALCIUM (BEAKER) (test vwwd=525) 9.2 mg/dL 8.4-10.2 EGFR (BEAKER) (test btsk=8896) 72 mL/min/1.73 sq m ESTIMATED GFR IS NOT ACCURATE CREATININE CLEARANCE IN PREDICTING GLOMERULAR FILTRATION RATE. ESTIMATED GFR IS NOT APPLICABLE FOR DIALYSIS PATIENTS. T4, [id number] 03:54:00* Test Item Value Reference Range Comments FREE T4 (BEAKER) (test ibrc=601) 1.06 ng/dL 0.70-1.48 [id number] 02:23:00* Test Item Value Reference Range Comments T3 TOTAL (BEAKER) (test jymq=297) 105 ng/dL 48-159 TSH/FREE T4 IF [id number] 02:23:00* Test Item Value Reference Range Comments THYROID STIMULATING HORMONE (BEAKER) (test icwz=429) 2.35 uIU/mL 0.35-4.94 B-TYPE NATRIURETIC FACTOR (BNP)2017-10-29 00:24:00* Test Item Value Reference Range Comments B-TYPE NATRIURETIC PEPTIDE (BEAKER) (test ylyt=596) 26 pg/mL 0-100 CREATINE KINASE (CK), TOTAL AND [id number] 00:23:00* Test Item Value Reference Range Comments CREATINE KINASE TOTAL (BEAKER) (test omja=639) 59 U/L 29-200 CREATINE KINASE-MB (BEAKER) (test iuor=350) 0.9 ng/mL 0.0-6.6 CREATINE KINASE-MB INDEX (BEAKER) (test qwwl=043) 1.5 % CK-MB Reference Range:<6.7 Normal6.7-10.0 Borderline>10.0 AbnormalTROPONIN [id number] 00:23:00* Test Item Value Reference Range Comments TROPONIN I (BEAKER) (test hpen=135) < ng/mL 0.00-0.03 Troponin I (TnI) levels must be interpreted [...] failure, acidosis, acute neurological disease, and persistent tachyarrhythmia.[id number] 00:17:00* Test Item Value Reference Range Comments PHOSPHORUS (BEAKER) (test gmab=403) 2.9 mg/dL 2.3-4.7 [id number] 00:17:00* Test Item Value Reference Range Comments MAGNESIUM (BEAKER) (test nseo=381) 1.9 mg/dL 1.6-2.6 BASIC METABOLIC [id number] 00:17:00* Test Item Value Reference Range Comments SODIUM (BEAKER) (test uhwu=912) 140 meq/L 136-145 POTASSIUM (BEAKER) (test ticw=941) 3.6 meq/L 3.5-5.1 CHLORIDE (BEAKER) (test zduo=691) 106 meq/L 98-107 CO2 (BEAKER) (test gmvi=060) 23 meq/L 22-29 BLOOD UREA NITROGEN (BEAKER) (test dryr=000) 14 mg/dL 7-21 CREATININE (BEAKER) (test ycky=513) 0.84 mg/dL 0.57-1.25 GLUCOSE RANDOM (BEAKER) (test dtvk=301) 121 mg/dL 70-105 CALCIUM (BEAKER) (test nmrn=928) 9.7 mg/dL 8.4-10.2 EGFR (BEAKER) (test lbdq=3403) 69 mL/min/1.73 sq m ESTIMATED GFR IS NOT ACCURATE CREATININE CLEARANCE IN PREDICTING GLOMERULAR FILTRATION RATE. ESTIMATED GFR IS NOT APPLICABLE FOR DIALYSIS PATIENTS. HEPATIC FUNCTION [id number] 00:17:00* Test Item Value Reference Range Comments TOTAL PROTEIN (BEAKER) (test lltl=400) 7.2 gm/dL 6.0-8.3 ALBUMIN (BEAKER) (test ffjt=3729) 3.9 g/dL 3.5-5.0 BILIRUBIN TOTAL (BEAKER) (test hdct=405) 0.4 mg/dL 0.2-1.2 BILIRUBIN DIRECT (BEAKER) (test kkkb=938) 0.2 mg/dL 0.1-0.5 ALKALINE PHOSPHATASE (BEAKER) (test dxnn=680) 100 U/L 40-150 AST (SGOT) (BEAKER) (test qnxq=863) 27 U/L 5-34 ALT (SGPT) (BEAKER) (test pwaw=889) 43 U/L 6-55 [id number] 00:10:00* Test Item Value Reference Range Comments D-DIMER QUANTITATIVE (BEAKER) (test tiln=736) 2.59 MG/L FEU <0.50 Intended Use: The D-Dimer Assay can be used to aid in the diagnosis of Deep Vein Thrombosis (DVT) and Pulmonary Embolism Disease (PED).In patients with low pre-test probability, various studies concerning STA Liatest D-dimer test have reported that with a cutoff value of 0.50 MG/L FEU, the Negative Predictive Value (NPV) regarding the exclusion of thrombosis is within 95-100% range.PROTHROMBIN TIME/[id number] 00:07:00* Test Item Value Reference Range Comments PROTIME (BEAKER) (test bahz=863) 13.5 seconds 11.7-14.7 INR (BEAKER) (test dbiq=151) 1.0 <=5.9 RECOMMENDED COUMADIN/WARFARIN INR THERAPY RANGESSTANDARD DOSE: 2.0 - 3.0 Includes: PROPHYLAXIS for venous thrombosis, systemic embolization; TREATMENT for venous thrombosis and/or pulmonary embolus.HIGH RISK: Target INR is 2.5-3.5 for patients with mechanical heart valves.LACTIC ACID, VENOUS, WHOLE [id number] 00:07:00* Test Item Value Reference Range Comments LACTATE BLOOD VENOUS (2) (BEAKER) (test jlxn=1913) 1.9 mmol/L 0.5-2.2 Effective 03/10/2016: Units/Reference Range ChangeNew: 0.5-2.2 mmol/L Previous: 5 -20 mg/dLCBC W/PLT COUNT & AUTO [id number] 23:55:00* Test Item Value Reference Range Comments WHITE BLOOD CELL COUNT (BEAKER) (test ascx=597) 5.6 K/ L 3.5-10.5 RED BLOOD CELL COUNT (BEAKER) (test cfgb=622) 4.07 M/ L 3.93-5.22 HEMOGLOBIN (BEAKER) (test nkno=339) 12.1 GM/DL 11.2-15.7 HEMATOCRIT (BEAKER) (test bgcz=823) 36.7 % 34.1-44.9 MEAN CORPUSCULAR VOLUME (BEAKER) (test cijr=405) 90.2 fL 79.4-94.8 MEAN CORPUSCULAR HEMOGLOBIN (BEAKER) (test zozf=894) 29.7 pg 25.6-32.2 MEAN CORPUSCULAR HEMOGLOBIN CONC (BEAKER) (test vlnd=104) 33.0 GM/DL 32.2- 35.5 RED CELL DISTRIBUTION WIDTH (BEAKER) (test boeu=187) 12.2 % 11.7-14.4 PLATELET COUNT (BEAKER) (test gque=880) 266 K/CU MM 150-450 MEAN PLATELET VOLUME (BEAKER) (test xkmh=695) 9.7 fL 9.4-12.3 NUCLEATED RED BLOOD CELLS (BEAKER) (test bmlt=074) 0 /100 WBC 0-0 NEUTROPHILS RELATIVE PERCENT (BEAKER) (test koii=324) 50 % LYMPHOCYTES RELATIVE PERCENT (BEAKER) (test qbow=031) 40 % MONOCYTES RELATIVE PERCENT (BEAKER) (test dmuy=943) 7 % EOSINOPHILS RELATIVE PERCENT (BEAKER) (test cczf=120) 3 % BASOPHILS RELATIVE PERCENT (BEAKER) (test lgst=582) 1 % NEUTROPHILS ABSOLUTE COUNT (BEAKER) (test ybnj=302) 2.79 K/ L 1.56-6.13 LYMPHOCYTES ABSOLUTE COUNT (BEAKER) (test nqlt=885) 2.25 K/ L 1.18-3.74 MONOCYTES ABSOLUTE COUNT (BEAKER) (test cvue=288) 0.40 K/ L 0.24-0.36 EOSINOPHILS ABSOLUTE COUNT (BEAKER) (test qkzq=329) 0.15 K/ L 0.04-0.36 BASOPHILS ABSOLUTE COUNT (BEAKER) (test pgea=933) 0.03 K/ L 0.01-0.08 IMMATURE GRANULOCYTES-RELATIVE PERCENT (BEAKER) (test hlvv=2511) 0 % 0-1
[2017-12-22 10:10] VITALS: BP 146/80
== END 2017-12-22 10:05 | disposition home or self-care (01) ==
LOC: FSED 09:11
DX: M54.2 Cervicalgia (principal); M62.830 Muscle spasm of back; V43.52XA Car driver injured in collision with other type car in traffic accident, initial encounter; Y92.488 Other paved roadways as the place of occurrence of the external cause; I10 Essential (primary) hypertension; F32.9 Major depressive disorder, single episode, unspecified; Z86.711 Personal history of pulmonary embolism
CPT/HCPCS: 99282

== ENCOUNTER 2018-02-18 14:50 | Emergency (ER) | payer OTHER ==
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
--- OUTSIDE RECORDS SUMMARY | 2018-02-18 14:53 | XMS REPORT | Clinical Summary ---
Author [facility] Address Unknown Phone Unavailable Care Team Providers Care Cloth Calender Name Role Phone PCP Unavailable Allergies Active [...] mouth Active MG CR tabletIndications: daily. hypertension enoxaparin (LOVENOX) 120 Inject 0.7 mLs (110 [...] tablet (5 mg 90 tablet 0 10/31/20 Discontin tablet total) by mouth every 17 [...] mouth daily for 17 17 3 days. warfarin (COUMADIN) 5 MG Take 1 tablet (5 mg 90 tablet 0 10/31/20 tablet total) by mouth every 17 18 evening for 90 days. Active Problems Problem Noted Date Acute pulmonary embolus (HCC) 10/30/2017 Pneumonia 10/28/2017 Encounters Date Type Specialty Care Team Description 10/28/2017 [facility] General Internal Medicine Essence Mustafa - Encounter MD Arlyn 10/31/2017 Mahamed Ko MD after 02/17/2017 Social History Tobacco Use Types Packs/Day Years Used Date Never Smoker Smokeless Tobacco: Never Used Alcohol Use Drinks/Week oz/Week Comments No Sex Assigned at Date Recorded Not on file Last Filed Vital Signs Vital Sign Reading Time Taken Blood Pressure 145/77 10/31/2017 8:00 AM LOCAL GOVERNMENT LEGISLATOR Pulse 88 10/31/2017 8:48 AM LOCAL GOVERNMENT LEGISLATOR Temperature 35.7 C (96.3 F) 10/31/2017 8:00 AM LOCAL GOVERNMENT LEGISLATOR Respiratory Rate 18 10/31/2017 8:48 AM LOCAL GOVERNMENT LEGISLATOR Oxygen Saturation 93% 10/31/2017 8:48 AM LOCAL GOVERNMENT LEGISLATOR Inhaled Oxygen - - Concentration Weight 112 kg (247 lb) 10/28/2017 8:30 PM LOCAL GOVERNMENT LEGISLATOR Height 165.1 cm (5' 5") 10/28/2017 8:30 PM LOCAL GOVERNMENT LEGISLATOR Body Mass Index 41.1 10/28/2017 8:30 PM LOCAL GOVERNMENT LEGISLATOR Plan of Treatment Not on file Results [...] Specimen Performing Laboratory Blood - Arm, [address] [address] * Daily Prothrombin time/INR while on warfarin (10/31/2017 6:04 AM) Only the most recent of 2 results within the time period is included. Component Value Ref Range Protime 15.8 (H) 11.7 - 14.7 seconds INR 1.3 <=5.9 Specimen Performing Laboratory Blood - Arm, [address] [address] Narrative RECOMMENDED COUMADIN/WARFARIN INR THERAPY RANGES STANDARD [...] --------- - ------ CBC with platelet count ...[[id number]]AbnormalFinal result Please view results for these tests on the individual orders. * Phosphorus (10/31/2017 6:04 AM) Only the most recent of 4 results within the time period is included. Component Value Ref Range Phosphorus 3.3 2.3 - 4.7 mg/dL Specimen Performing Laboratory Blood - Arm, [address] [address] * Magnesium (10/31/2017 6:04 AM) Only the most recent of 4 results within the time period is included. Component Value Ref Range Magnesium 2.0 1.6 - 2.6 mg/dL Specimen Performing Laboratory Blood - Arm, [address] [address] * Basic metabolic panel (10/31/2017 6:04 AM) [...] Specimen Performing Laboratory Blood - Arm, [address] [address] * Prothrombin Gene Mutation (10/30/2017 5:55 PM) Component Value Ref Range Prothrombin/Factor II Negative for the [id number] (Prothrombin/Factor II) mutation. Pathologist: Kallie Blanco MD (electronic signature) Specimen Performing Laboratory Blood [address] [address] Narrative This test is a genotyping assay which evaluates the DNA sequence at position [address] of the prothrombin (Factor II) gene. A [...] and its performance characteristics determined by the [facility] Pathology Department, Section of Molecular Pathology. [...] more information on this test, go to: [email or web address]/[email or web address] Specimen Performing Laboratory Blood [facility] [place] [address] [place] [address] Narrative Performing Lab [facility] [address] [address] Larry Live MD * Protein S activity [...] increased thrombotic risk. Specimen Performing Laboratory Blood [facility] [place] [address] [place] [address] Narrative Performing Lab [facility] [address] [place] [address] Larry Live MD * Protein C activity (10/30/2017 5:55 PM) Component Value Ref Range Protein C Activity 134.0 (H) 70.0 - 130.0 % Specimen [place] [address] * Factor 5 Leiden PCR (thrombotic risk) (10/30/2017 5:55 PM) Component Value Ref Range Factor V Leiden Negative for the R506Q (Factor V Leiden) mutation Pathologist: Kallie Blanco MD (electronic signature) Specimen [place] [address] Narrative This test is a genotyping assay [...] and its performance characteristics determined by the [facility] Pathology Department, Section of Molecular Pathology. [...] - 120.0 % Specimen Performing Laboratory Blood [place] [id number] * PERIPHERAL VASCULAR REPORT - SCAN (10/30/2017 [...] Study 10/30/2017 GAURAV VALLECILLO Age 62 Visit [id number] Gender Female Date of 1954 Number [facility] Number [id number] Physician Harvest Manager Anya Graham InterpretingPhysician JOHNNA Lopez, RPVI Procedure [...] External Ris In - 10/30/2017 3:09 PM LOCAL GOVERNMENT LEGISLATOR PV LAB - Lower Extremities DVT Study Demographics Patient Name LOUIE, Date of Study 10/30/2017 GAURAV VALLECILLO Age 62 Visit Number [id number] Gender Female Date of 1955 Number Referring Mahamed Ko Room Number [id number] Physician Harvest Manager Anya Graham Interpreting Maye Otto, Physician , [...] Ref Range Ejection Fraction Specimen Performing Laboratory [facility] Narrative Transthoracic Echocardiography Report (TTE) Demographics Patient NameSMichael JIMENEZ of Study10/30/2017 RUTH ANN Gender Female Visit [id number] Race Unknown Number [id number] Number Date of 1955 Referring Rocael Segura Physician Age 62 year(s) Harvest Manager Torodelmi Araujo [facility] Sagger Preparer Pretty Chavez Interpreting Physician GeraldMD Procedure Type [...] External Ris In - 10/30/2017 2:38 PM LOCAL GOVERNMENT LEGISLATOR Transthoracic Echocardiography Report (TTE) Demographics Patient Name GAURAV PALMA Date of Study 10/30/2017 RUTH ANN Gender Female Visit Number [id number] Race Unknown Room Number [id number] Number Date of 1955 Referring Rocael Segura Physician Age 62 year(s) Harvest Manager Toro Araujo [facility] Sagger Preparer Pretty Chavez Interpreting Physician JOHNNA Duarte Procedure [...] embolus (10/29/2017 10:49 AM) Specimen Performing Laboratory [facility] Narrative FINAL REPORT HISTORY: Chest pain, acute, [...] thyroid nodule. Please see above. Signed: Timbo Elias MD Report Verified Date/Time:10/29/2017 11:04:32 Reading Location: [address] Reading Room Procedure Note Interface, External Ris In - 10/29/2017 11:06 AM LOCAL GOVERNMENT LEGISLATOR FINAL REPORT HISTORY: Chest pain, acute, PE [...] thyroid nodule. Please see above. Signed: Timbo Elias MD Report Verified Date/Time: 10/29/2017 11:04:32 Reading Location: [facility] Transitional Reading Room * XR chest 1 view portable / bedside (10/29/2017 7:42 AM) Specimen Performing Laboratory [facility] Narrative FINAL REPORT Chest one view INDICATION: [...] intact. Signed: Citlali Mitchell MD Report Verified Date/Time:10/29/2017 09:04:04 Reading Location: [facility] C0[facility] Neuro Reading Room Procedure Note Interface, External Ris In - 10/29/2017 9:17 AM LOCAL GOVERNMENT LEGISLATOR FINAL REPORT Chest one view INDICATION: Shortness [...] Report Verified Date/Time: 10/29/2017 09:04:04 Reading Location: [address] Neuro Reading Room * Blood culture #2 (10/29/2017 6:22 AM) Only the most recent of 2 results within the time period is included. Component Value Ref Range Result No growth in 5 days Specimen Performing Laboratory Blood - Line, [place] [address] * Manual Differential (10/29/2017 6:21 AM) Component Value Ref Range Total Counted Specimen Performing Laboratory Blood [address] [address] * Influenza A H1N1 PCR (10/29/2017 12:03 AM) Component Value Ref Range Influenza A RNA Not Detected Not Detected, Inconclusive Novel H1N1 RNA Not Detected Not Detected, Inconclusive Specimen Performing Laboratory Nasal - Nasal Mucosa [address] [address] Narrative These assays were performed by real-time RT-PCR (plate preparer-PCR) utilizing fluorogenic hydrolysis probe technology for the detection of human Influenza A viruses and the differential detection of novel H1N1 Influenza virus in respiratory specimens. The test is composed of (1) an RNA extraction from patient specimen, and (2) plate preparer-PCR amplification and detection with human Influenza A and novel [id number] primers and probes. A well-conserved region of [...] and its performance characteristics determined by the [facility] Pathology Department, Section of Molecular Pathology.It has not been cleared or approved by the U.S. Food and Drug Administration (FDA).Since FDA approval is not required for clinical use of the test, validation was done as required by The Clinical Laboratory Amendments of 1988. These assays were performed by real-time RT-PCR (plate preparer-PCR) utilizing fluorogenic hydrolysis probe technology for the detection of human Influenza A viruses and the differential detection of novel H1N1 Influenza virus in respiratory specimens. The test is composed of (1) an RNA extraction from patient specimen, and (2) plate preparer-PCR amplification and detection with human Influenza A and novel [id number] primers and probes. A well-conserved region of [...] and its performance characteristics determined by the [facility] Pathology Department, Section of Molecular Pathology.It [...] - 4.94 uIU/mL Specimen [place] [address] * Troponin I (10/28/2017 11:41 PM) Component Value Ref Range Troponin I <0.01 0.00 - 0.03 ng/mL Specimen [place] [address] Narrative Troponin I (TnI) levels must be [...] - 2.2 mmol/L Specimen [place] [address] Narrative Effective 03/10/2016: Units/Reference Range Change New: 0.5-2.2 mmol/LPrevious: 5-20 mg/dL * D-dimer (10/28/2017 11:41 PM) Component Value Ref Range D-Dimer, Quant 2.59 (H) <0.50 MG/L FEU Specimen [place] [address] Narrative Intended Use: The D-Dimer Assay can [...] - 159 ng/dL Specimen [place] [address] * T4, free (10/28/2017 11:41 PM) Component Value Ref Range Free T4 1.06 0.70 - 1.48 ng/dL Specimen Performing Laboratory Blood [address] [address] * B-type Natriuretic Factor (BNP) (10/28/2017 11:41 PM) Component Value Ref Range BNP 26 0 - 100 pg/mL Specimen Performing Laboratory Blood [address] [address] * Creatine Kinase (CK), Total and MB (10/28/2017 11:41 PM) Component Value Ref Range Total CK 59 29 - 200 U/L CK-MB 0.9 0.0 - 6.6 ng/mL MB Relative Index 1.5 % Specimen Performing Laboratory Blood [address] [address] Narrative CK-MB Reference Range: <6.7Normal 6.7-10.0Borderline >10.0 [...] - 55 U/L Specimen Performing Laboratory Blood [address] [address] after 02/17/2017
[2018-02-18] MEDS ORDERED: WARFARIN SODIUM1 MG PO (15:39)
[2018-02-18] MEDS ORDERED: NEURONTIN100 MG PO (15:40)
[2018-02-18] MEDS ORDERED: LOSARTAN POTASS25 MG (15:41)
[2018-02-18] MEDS ORDERED: ELMIRON100 MG (15:42)
[2018-02-18] MEDS ORDERED: DICYCLOMINE HCL10 MG (15:43)
[2018-02-18] MEDS ORDERED: PANTOPRAZOLE SO40 MG PO (15:44)
[2018-02-18] MEDS ORDERED: ROBAXIN-750750 MG PO (16:50)
[2018-02-18 17:02] VITALS: BP 132/78
== END 2018-02-18 17:00 | disposition home or self-care (01) ==
LOC: FSED 14:50
DX: S39.012A Strain of muscle, fascia and tendon of lower back, initial encounter (principal); W01.0XXA Fall on same level from slipping, tripping and stumbling without subsequent striking against object, initial encounter; Y93.01 Activity, walking, marching and hiking; Y92.481 Parking lot as the place of occurrence of the external cause; K64.4 Residual hemorrhoidal skin tags; Z87.891 Personal history of nicotine dependence; Z79.01 Long term (current) use of anticoagulants; R31.9 Hematuria, unspecified
CPT/HCPCS: 80053; 81003; 82270; 85025; 85610; 99283

== ENCOUNTER 2022-12-28 21:28 | Inpatient (IN) | payer MEDICARE, OTHER ==
[~2022-12-28] VITALS: Ht 165.1 cm; Wt 111.4 kg
[~2022-12-28 21:28] MED LIST changes: +DICYCLOMINE HCL10 MG; +ELMIRON100 MG; +LOSARTAN POTASS25 MG; +NEURONTIN100 MG PO; +PANTOPRAZOLE SO40 MG PO; +ROBAXIN-750750 MG PO; +SODIUM CHLORIDE FLUSH 10 ML SYR IV PRN; +WARFARIN SODIUM1 MG PO
[2022-12-28] MEDS ORDERED: ASPIRIN 325 MG TAB PO ONE (21:45)
[2022-12-28] MEDS ORDERED: METHYLPREDNISOLONE SOD SUCC 125 MG/2ML VIAL IV ONE (21:45)
[2022-12-28] MEDS ORDERED: ALBUTEROL/IPRATROPIUM 3 ML NEB NEB ONE (21:45)
[2022-12-28 21:58] LABS: BASOPHILS % 0.2 % (0.0-1.0); EOSINOPHILS # (AUTO) 0.1 (0.0-0.4); EOSINOPHILS % 1.3 % (0.0-6.0); HEMATOCRIT 40.8 % (34.2-44.1); HEMOGLOBIN 13.5 g/dL (12.0-16.0); LYMPHOCYTES # (AUTO) 1.3 (1.0-3.2); LYMPHOCYTES % 28.9 % (18.0-39.1); MEAN CORPUSCULAR HEMOGLOBIN 29.9 pg (28-32); MEAN CORPUSCULAR HGB CONC 33.1 g/dL (31-35); MEAN CORPUSCULAR VOLUME 90.3 fL (81-99); MONOCYTES # (AUTO) 0.3 (0.2-0.8); MONOCYTES % 5.8 % (4.4-11.3); NEUTROPHILS # (AUTO) 2.8 (2.1-6.9); NEUTROPHILS % 63.1 % (38.7-80.0); PLATELET COUNT 255 x10e3/uL (140-360); RED BLOOD COUNT 4.52 x10e6/uL (3.6-5.1); RED CELL DISTRIBUTION WIDTH 12.7 % (11.7-14.4)
[2022-12-28 22:02] LABS: INR 0.96
[2022-12-28 22:03] LABS: PARTIAL THROMBOPLASTIN TIME 32.7 seconds (23.8-35.5)
[2022-12-28] MEDS ORDERED: ALBUTEROL/IPRATROPIUM 3 ML NEB ONE (22:05)
[2022-12-28 22:07] LABS: ABG HCO3 24 mmol/L (22-26); ABG PCO2 33 mmHg (35-45); ABG PH 7.47 (7.35-7.45); ABG PO2 71 mmHg (80-105); ABG TCO2 25
[2022-12-28 22:12] LABS: ALANINE AMINOTRANSFERASE 53 IU/L (0-55); ALBUMIN 3.1 g/dL (3.5-5.0); ALBUMIN/GLOBULIN RATIO 0.7 (0.8-2.0); ALKALINE PHOSPHATASE 90 IU/L (40-150); ANION GAP 16.6 mmol/L (8-16); BLOOD UREA NITROGEN 16 mg/dL (7-26); BUN/CREATININE RATIO 15 (6-25); CALCIUM 8.8 mg/dL (8.4-10.2); CARBON DIOXIDE 22 mmol/L (22-29); CHLORIDE 104 mmol/L (98-107); CREATINE KINASE 45 IU/L (29-168); CREATININE, SERUM 1.04 mg/dL (0.57-1.11); GLUCOSE 168 mg/dL (74-118); POTASSIUM 3.6 mmol/L (3.5-5.1); SODIUM 139 mmol/L (136-145)
[2022-12-28 22:17] LABS: CREATINE KINASE MB < 1.00 ng/mL (0-4.3)
[2022-12-28] MEDS ORDERED: IOPAMIDOL 370 MG/ML 100 ML INFUS..BTL INJ ONE (22:49)
[2022-12-29 01:37] LABS: AMPHETAMINES SCREEN,URINE NEGATIVE (NEGATIVE); BENZODIAZEPINES SCREEN,URINE NEGATIVE (NEGATIVE); CLARITY,URINE CLEAR (CLEAR); COLOR,URINE YELLOW (YELLOW); KETONES,URINE NEGATIVE (NEGATIVE); LEUKOCYTE ESTERASE ,URINE NEGATIVE (NEGATIVE); NITRITE,URINE NEGATIVE (NEGATIVE); PHENCYCLIDINE SCREEN,URINE NEGATIVE (NEGATIVE); PROTEIN,URINE DIPSTICK NEGATIVE (NEGATIVE); URINE UROBILINOGEN 0.2 mg/dL (0.2 - 1)
[2022-12-29 01:40] LABS: BACTERIA,URINE FEW /HPF; EPITHELIAL CELLS,URINE MODERATE /LPF; RBC,URINE 0-5 /HPF (0-5); WBC,URINE (MAN) 0-5 /HPF (0-5)
[2022-12-29] MEDS ORDERED: ONDANSETRON HCL INJ 2MG/ML 2ML 2 MG/ML VIAL IV PRN (03:00)
[2022-12-29] MEDS ORDERED: REMDESIVIR 100MG 200 MG in SODIUM CHLORIDE 0.9% 100 ML IV ONE (10:30)
[2022-12-29] MEDS: DEXAMETHASONE SOD PHOS 10 MG/1 ML VIAL IV SCH (10:45)
[2022-12-29] MEDS: ENOXAPARIN SOD INJ 40 MG/0.4 ML SYR SC SCH ×2 (12:22→21:15)
[2022-12-29] MEDS ORDERED: ENOXAPARIN SOD INJ 40 MG/0.4 ML SYR SC SCH (17:00)
[2022-12-29 18:00] VITALS: BP 135/56
[2022-12-29] MEDS: ALBUTEROL/IPRATROPIUM 3 ML NEB NEB PRN (19:55)
[2022-12-29 20:00] VITALS: BP 157/72
[2022-12-29] MEDS ORDERED: LOSARTAN POTAS100 MG PO (21:09)
[2022-12-29] MEDS ORDERED: OS-CAL 500+D T1 EACH PO (21:09)
[2022-12-29] MEDS ORDERED: HYDROCHLOROTHIA25 MG PO (21:09)
[2022-12-29] MEDS ORDERED: LEVOTHYROXINE112 MCG PO (21:09)
[2022-12-29] MEDS ORDERED: FISH OIL 1,2001 EAC1 (21:09)
[2022-12-29] MEDS ORDERED: AMLODIPINE BESYL5 MG PO (21:09)
[2022-12-29] MEDS ORDERED: NAPROXEN250 MG PO (21:09)
[2022-12-29] MEDS ORDERED: SERTRALINE HCL100 MG PO (21:09)
[2022-12-29] MEDS: ACETAMINOPHEN 325 MG TAB PO PRN (23:52)
[2022-12-30] VITALS (7 sets, daily range): BP systolic 127–149; BP diastolic 55–75
[2022-12-30 06:05] LABS: BASOPHILS % 0.1 % (0.0-1.0); HEMATOCRIT 37.1 % (34.2-44.1); LYMPHOCYTES # (AUTO) 0.9 (1.0-3.2); LYMPHOCYTES % 13.1 % (18.0-39.1); MEAN CORPUSCULAR HEMOGLOBIN 29.9 pg (28-32); MEAN CORPUSCULAR HGB CONC 32.3 g/dL (31-35); MEAN CORPUSCULAR VOLUME 92.3 fL (81-99); MONOCYTES # (AUTO) 0.4 (0.2-0.8); MONOCYTES % 6.5 % (4.4-11.3); NEUTROPHILS # (AUTO) 5.4 (2.1-6.9); NEUTROPHILS % 79.6 % (38.7-80.0); PLATELET COUNT 253 x10e3/uL (140-360); RED BLOOD COUNT 4.02 x10e6/uL (3.6-5.1); RED CELL DISTRIBUTION WIDTH 12.5 % (11.7-14.4)
[2022-12-30 06:36] LABS: ALBUMIN 2.8 g/dL (3.5-5.0); ALBUMIN/GLOBULIN RATIO 0.7 (0.8-2.0); ANION GAP 14.9 mmol/L (8-16); CALCIUM 8.3 mg/dL (8.4-10.2); CREATININE, SERUM 1.06 mg/dL (0.57-1.11); POTASSIUM 3.9 mmol/L (3.5-5.1)
[2022-12-30] MEDS: PANTOPRAZOLE SOD 40 MG TABEC PO SCH (08:04)
[2022-12-30] MEDS: ENOXAPARIN SOD INJ 40 MG/0.4 ML SYR SC SCH ×2 (08:05→20:42)
[2022-12-30] MEDS: DEXAMETHASONE SOD PHOS 10 MG/1 ML VIAL IV SCH (08:05)
[2022-12-30] MEDS ORDERED: REMDESIVIR 100MG 100 MG in SODIUM CHLORIDE 0.9% 100 ML IV SCH (14:00)
[2022-12-30] MEDS: REMDESIVIR 100MG 100 MG in SODIUM CHLORIDE 0.9% 100 ML IV SCH (14:25)
[2022-12-30] MEDS: ACETAMINOPHEN 325 MG TAB PO PRN (23:20)
[2022-12-31 03:59] VITALS: BP 149/75
[2022-12-31 07:34] VITALS: BP 146/67
[2022-12-31] MEDS ORDERED: ONDANSETRON HCL 4 MG ORAL DISINTEGRATING TAB PO PRN (07:45)
[2022-12-31] MEDS: ENOXAPARIN SOD INJ 40 MG/0.4 ML SYR SC SCH ×2 (08:45→21:12)
[2022-12-31] MEDS: DEXAMETHASONE SOD PHOS 10 MG/1 ML VIAL IV SCH (08:45)
[2022-12-31] MEDS: PANTOPRAZOLE SOD 40 MG TABEC PO SCH (08:45)
[2022-12-31 09:36] VITALS: BP 146/67
[2022-12-31] MEDS ORDERED: SODIUM CHLORIDE 0.9% 250ML 250 ML ONE (10:42)
[2022-12-31 11:29] VITALS: BP 147/71
[2022-12-31] MEDS ORDERED: BISACODYL 5 MG TAB EC PO ONE (12:00)
[2022-12-31] MEDS: REMDESIVIR 100MG 100 MG in SODIUM CHLORIDE 0.9% 100 ML IV SCH (12:23)
[2022-12-31 15:42] VITALS: BP 125/66
[2022-12-31] MEDS: DOCUSATE SODIUM 100 MG CAP PO SCH (16:23)
[2022-12-31] MEDS: ALBUTEROL/IPRATROPIUM 3 ML NEB NEB PRN (19:50)
[2022-12-31] MEDS ORDERED: AZITHROMYCIN 250 MG TAB PO SCH (21:00)
[2023-01-01] MEDS: LEVOTHYROXINE SODIUM 125 MCG TAB PO SCH (05:32)
[2023-01-01 07:50] VITALS: BP 135/78
[2023-01-01 08:00] VITALS: BP 135/78
[2023-01-01] MEDS: OYST-CAL-D 500MG TABLET PO SCH (08:56)
[2023-01-01] MEDS: DOCUSATE SODIUM 100 MG CAP PO SCH ×2 (08:56→16:30)
[2023-01-01] MEDS: HYDROCHLOROTHIAZIDE 25 MG TAB PO SCH (08:56)
[2023-01-01] MEDS: AMLODIPINE BESYLATE 5 MG TAB PO SCH (08:56)
[2023-01-01] MEDS: PANTOPRAZOLE SOD 40 MG TABEC PO SCH (08:56)
[2023-01-01] MEDS: SERTRALINE HCL 100 MG TAB PO SCH (08:56)
[2023-01-01] MEDS: ENOXAPARIN SOD INJ 40 MG/0.4 ML SYR SC SCH ×2 (08:57→20:39)
[2023-01-01] MEDS: DEXAMETHASONE SOD PHOS 10 MG/1 ML VIAL IV SCH (08:57)
[2023-01-01 11:18] VITALS: BP 166/80
[2023-01-01] MEDS: REMDESIVIR 100MG 100 MG in SODIUM CHLORIDE 0.9% 100 ML IV SCH (15:13)
[2023-01-01 15:54] VITALS: BP 144/72
[2023-01-01 20:00] VITALS: BP 149/76
[2023-01-01] MEDS: ALBUTEROL/IPRATROPIUM 3 ML NEB NEB PRN (20:10)
[2023-01-01 21:20] VITALS: BP 149/76
[2023-01-02] VITALS: BP 147/79
[2023-01-02] MEDS: LEVOTHYROXINE SODIUM 125 MCG TAB PO SCH (04:30)
[2023-01-02 04:56] VITALS: BP 151/80
[2023-01-02 07:10] VITALS: BP 149/79
[2023-01-02 07:43] LABS: BASOPHILS % 0.2 % (0.0-1.0); EOSINOPHILS % 0.3 % (0.0-6.0); HEMATOCRIT 39.5 % (34.2-44.1); HEMOGLOBIN 12.9 g/dL (12.0-16.0); LYMPHOCYTES # (AUTO) 1.3 (1.0-3.2); MEAN CORPUSCULAR HEMOGLOBIN 29.7 pg (28-32); MEAN CORPUSCULAR HGB CONC 32.7 g/dL (31-35); MEAN CORPUSCULAR VOLUME 90.8 fL (81-99); MONOCYTES # (AUTO) 0.4 (0.2-0.8); NEUTROPHILS # (AUTO) 4.3 (2.1-6.9); PLATELET COUNT 278 x10e3/uL (140-360); RED BLOOD COUNT 4.35 x10e6/uL (3.6-5.1); RED CELL DISTRIBUTION WIDTH 12.4 % (11.7-14.4)
[2023-01-02 07:58] VITALS: BP 149/79
[2023-01-02 08:12] LABS: ANION GAP 15.2 mmol/L (8-16); CALCIUM 8.3 mg/dL (8.4-10.2); CREATININE, SERUM 0.95 mg/dL (0.57-1.11); POTASSIUM 4.2 mmol/L (3.5-5.1)
[2023-01-02] MEDS: SERTRALINE HCL 100 MG TAB PO SCH (08:43)
[2023-01-02] MEDS: DEXAMETHASONE SOD PHOS 10 MG/1 ML VIAL IV SCH (08:43)
[2023-01-02] MEDS: OYST-CAL-D 500MG TABLET PO SCH (08:43)
[2023-01-02] MEDS: DOCUSATE SODIUM 100 MG CAP PO SCH (08:43)
[2023-01-02] MEDS: HYDROCHLOROTHIAZIDE 25 MG TAB PO SCH (08:43)
[2023-01-02] MEDS: PANTOPRAZOLE SOD 40 MG TABEC PO SCH (08:43)
[2023-01-02] MEDS: AMLODIPINE BESYLATE 5 MG TAB PO SCH (08:44)
[2023-01-02] MEDS: ENOXAPARIN SOD INJ 40 MG/0.4 ML SYR SC SCH (08:44)
[2023-01-02 11:16] VITALS: BP 160/74
[2023-01-02] MEDS: REMDESIVIR 100MG 100 MG in SODIUM CHLORIDE 0.9% 100 ML IV SCH (12:57)
[2023-01-02] MEDS ORDERED: DEXAMETHASONE6 MG PO (13:08)
[2023-01-02] MEDS ORDERED: CLONIDINE HCL 0.1 MG TAB PO ONE (14:00)
== END 2023-01-02 14:46 | disposition home or self-care (01) | DRG 177 ==
LOC: ER 21:37 → ERHOLD 12-29 03:00 → MED/SURG2 12-29 16:58
PROVIDERS: ADMIT Internal Medicine; ATTEND Internal Medicine
PROC: 3E0333Z Introduction of Anti-inflammatory into Peripheral Vein, Percutaneous Approach (ICD-10-PCS; 2022-12-29)
PROC: XW033E5 Introduction of Remdesivir Anti-infective into Peripheral Vein, Percutaneous Approach, New Technology Group 5 (ICD-10-PCS; principal; 2022-12-30)
PROC: 8E0ZXY6 Isolation (ICD-10-PCS; 2022-12-30)
DX: U07.1 COVID-19 (principal); J12.82 Pneumonia due to coronavirus disease 2019; J96.00 Acute respiratory failure, unspecified whether with hypoxia or hypercapnia; J96.01 Acute respiratory failure with hypoxia; Z68.41 Body mass index [BMI] 40.0-44.9, adult; I10 Essential (primary) hypertension; E78.5 Hyperlipidemia, unspecified; F32.A Depression, unspecified; E03.9 Hypothyroidism, unspecified; J43.9 Emphysema, unspecified; G47.33 Obstructive sleep apnea (adult) (pediatric); E66.01 Morbid (severe) obesity due to excess calories; Z86.711 Personal history of pulmonary embolism; Z87.891 Personal history of nicotine dependence; Z79.01 Long term (current) use of anticoagulants; Z85.850 Personal history of malignant neoplasm of thyroid
CPT/HCPCS: 36415; 71045; 71260; 80048; 80053; 80307; 81001; 82550; 82553; 82805; 82948; 83605; 83880; 84484; 85025; 85610; 85730; 87040; 87086; 93005; 94640; 94799; 99284; J0248; J0456; J0696; J1100; J1650; J2930; J7050; Q9967